=== PATIENT | male | born 2000 | race Asian ===

== ENCOUNTER 2022-07-22 15:26 | Emergency (ER) | payer OTHER ==
[~2022-07-22] VITALS: Ht 185.4 cm; Wt 113.4 kg
[2022-07-22 15:33] VITALS: TEMP 99.1
[2022-07-22 16:22] VITALS: BP 123/78
== END 2022-07-22 16:40 | disposition home or self-care (01) ==
LOC: ED 15:26
DX: S02.5XXA Fracture of tooth (traumatic), initial encounter for closed fracture (principal); K08.89 Other specified disorders of teeth and supporting structures; X58.XXXA Exposure to other specified factors, initial encounter; Y92.89 Other specified places as the place of occurrence of the external cause
CPT/HCPCS: 96372; 99282; J1885